=== PATIENT | female | born 2000 | race African-American/Black ===

== ENCOUNTER 2022-12-08 10:05 | Emergency (ER) | payer OTHER ==
[~2022-12-08] VITALS: Ht 160 cm; Wt 68.2 kg
[~2022-12-08 10:05] MED LIST: ACET100D30; GUAN1TAB22 PO; METH27TA PO
[2022-12-08 10:23] VITALS: TEMP 99.2
[2022-12-08 10:33] LABS: COVID AG,FIA SOURCE NASAL SWAB
[2022-12-08 10:40] LABS: INFLUENZA TYPE A NEGATIVE FOR TYPE A (NEGATIVE); INFLUENZA TYPE B NEGATIVE FOR TYPE B (NEGATIVE)
[2022-12-08] MEDS ORDERED: PENI500T2 PO (11:32)
[2022-12-08] MEDS ORDERED: IBUP-1492 PO (11:33)
[2022-12-08 11:59] VITALS: BP 121/52; PULSE 88; RESP 16
== END 2022-12-08 12:26 | disposition home or self-care (01) ==
LOC: EMS 10:16
DX: J03.90 Acute tonsillitis, unspecified (principal); Z20.822 Contact with and (suspected) exposure to COVID-19
CPT/HCPCS: 87430; 87804; 99283

== ENCOUNTER 2023-03-19 19:59 | Emergency (ER) | payer OTHER ==
[~2023-03-19] VITALS: Ht 162.6 cm; Wt 67.0 kg
[~2023-03-19 19:59] MED LIST changes: +IBUP-1492 PO; +PENI500T2 PO
[2023-03-19 20:02] VITALS: TEMP 98.6
[2023-03-19 22:35] VITALS: BP 121/63; PULSE 63; RESP 15
[2023-03-19] MEDS ORDERED: PredniSONE 20 MG TABLET PO ONE (22:45)
[2023-03-19] MEDS ORDERED: DiphenhydrAMINE HCL 50 MG/ML VIAL IM ONE (22:45)
[2023-03-19] MEDS ORDERED: DIPH25CA85 PO (23:10)
[2023-03-19] MEDS ORDERED: PRED-554 PO (23:11)
== END 2023-03-19 23:17 | disposition home or self-care (01) ==
LOC: EMS 20:00
DX: L50.0 Allergic urticaria (principal); F90.9 Attention-deficit hyperactivity disorder, unspecified type
CPT/HCPCS: 99283; 96372; J1200; J7512

== ENCOUNTER 2023-08-08 01:50 | Emergency (ER) | payer OTHER ==
[~2023-08-08] VITALS: Ht 165.1 cm; Wt 68.2 kg
[~2023-08-08 01:50] MED LIST changes: +DIPH25CA85 PO; +PRED-554 PO
[2023-08-08] MEDS ORDERED: KETOROLAC TROMETHAMINE 30 MG/ML VIAL IVP ONE (02:00)
[2023-08-08 02:14] LABS: EOSINOPHILS % (AUTO) 2.1 % (1.0-6.0); HEMATOCRIT 39.6 % (36-46); LYMPHOCYTES # (AUTO) 3.3 K/uL (1.0-4.8); LYMPHOCYTES % (AUTO) 26.5 % (22.0-44.0); MEAN CORPUSCULAR HEMOGLOBIN 29.3 pg (26.0-34.0); MEAN CORPUSCULAR HGB CONC 32.9 G/dL (31.0-37.0); MEAN CORPUSCULAR VOLUME 89 fL (80-100); MONOCYTES # (AUTO) 0.9 K/uL (0.1-1.0); MONOCYTES % (AUTO) 7.4 % (2.0-9.0); NEUTROPHILS # (AUTO) 7.8 K/uL (1.8-7.7); PLATELET COUNT (AUTO) 278 K/uL (150-450); RED BLOOD CELL COUNT(AUTO) 4.45 MIL/uL (4.00-5.20); RED CELL DISTRIBUTION WIDTH 13.5 % (11.5-14.5); WHITE BLOOD COUNT (AUTO) 12.4 K/uL (4.5-11.0)
[2023-08-08 02:24] LABS: ANION GAP 8 mmol/L (8-16); CALCIUM, TOTAL 9.1 mg/dL (8.8-10.5); CARBON DIOXIDE 28 mmol/L (22-29); CHLORIDE 103 mmol/L (98-107); CREATININE 1.02 mg/dL (0.60-1.30); GLOMERULAR FILTR. RATE CALC > 60 mL/min (>60); GLUCOSE,RANDOM 101 mg/dL (70-110); POTASSIUM 3.6 mmol/L (3.5-5.1); SODIUM SERUM 139 mmol/L (136-145); UREA NITROGEN, BLOOD 20 mg/dL (7-18)
[2023-08-08 02:30] LABS: ALANINE AMINOTRANSFERASE 20 U/L (12-78); ALBUMIN 3.4 g/dL (3.4-5.0); ALKALINE PHOSPHATASE 78 U/L (46-116); ASPARTATE AMINOTRANSFERASE 14 U/L (15-37); LIPASE 37 U/L (16-77); TOTAL PROTEIN, SERUM 7.8 g/dL (6.4-8.2)
[2023-08-08 02:43] LABS: BILIRUBIN,TOTAL 0.1 mg/dL (0.1-1.0)
[2023-08-08 02:53] VITALS: TEMP 99
[2023-08-08] MEDS: KETOROLAC TROMETHAMINE 15 MG/ML VIAL IVP ONE (03:10)
[2023-08-08] MEDS ORDERED: SODIUM CHLORIDE 0.9% 100 ML ONE (04:00)
[2023-08-08] MEDS ORDERED: IOHEXOL 350 MG/ML 100 ML VIAL ONE (04:00)
[2023-08-08 06:26] LABS: APPEARANCE,URINE CLEAR (CLEAR); BILIRUBIN,URINE NEGATIVE (NEGATIVE); COLOR,URINE LIGHT YELLOW (YELLOW); GLUCOSE, URINE (UA) NEGATIVE (NEGATIVE); KETONES,URINE NEGATIVE (NEGATIVE); LEUKOCYTE ESTERASE ,URINE NEGATIVE (NEGATIVE); NITRATE,URINE NEGATIVE (NEGATIVE); OCCULT BLOOD,URINE NEGATIVE (NEGATIVE); PROTEIN,URINE 30-70 mg/dL (NEGATIVE); UROBILINOGEN,URINE <=1.0 mg/dL (<=1.0)
[2023-08-08 08:04] VITALS: BP 98/63; PULSE 58; RESP 16
== END 2023-08-08 08:20 | disposition home or self-care (01) ==
LOC: EMS 01:55
DX: R10.84 Generalized abdominal pain (principal)
CPT/HCPCS: 99285; 74177; 96374; 80053; 81003; 83690; 84703; 85025; 36415; J1885; Q9967; J7050